=== PATIENT | male | born 1980 | race African-American/Black ===

== ENCOUNTER 2021-02-24 13:20 | Emergency (ER) | payer MEDICAID ==
[~2021-02-24] VITALS: Ht 170.2 cm; Wt 82.0 kg
[2021-02-24] MEDS ORDERED: ALBU6.7H9 INH (15:07)
[2021-02-24] MEDS ORDERED: P20 MT (15:07)
[2021-02-24 16:17] VITALS: BP 136/99
== END 2021-02-24 16:19 | disposition home or self-care (01) ==
LOC: ER 13:20
DX: R05.9 Cough, unspecified (principal); R06.2 Wheezing; Z20.822 Contact with and (suspected) exposure to COVID-19
CPT/HCPCS: 99283; C9803; U0003; U0005; Z7610

== ENCOUNTER 2023-05-23 16:26 | Emergency (ER) | payer MEDICAID ==
[~2023-05-23] VITALS: Ht 167.6 cm; Wt 66.0 kg
[~2023-05-23 16:26] MED LIST: ALBU6.7H3 INH; P20 MT
[2023-05-23 16:37] VITALS: BP 129/80; PULSE 73; RESP 18; O2SAT 100
[2023-05-23] MEDS ORDERED: ACETAMINOPHEN 325MG TABLET PO ONE (19:15)
[2023-05-23] MEDS ORDERED: METOCLOPRAMIDE HCL 10MG TABLET PO ONE (19:15)
[2023-05-23 20:25] LABS: BASOPHILS % 0.5 % (0.0-2.0); EOSINOPHILS % 0.8 % (0.0-5.0); HEMATOCRIT. 43.9 % (42.0-52.0); HEMOGLOBIN. 14.8 g/dL (14.0-18.0); LYMPHOCYTES % 30.6 % (20.0-50.0); MEAN CORPUSCULAR HEMOGLOBIN 31.5 pg (28.0-32.0); MEAN CORPUSCULAR HGB CONC 33.6 g/dL (31.0-37.0); MEAN CORPUSCULAR VOLUME 93.8 fL (80.0-94.0); MEAN PLATELET VOLUME 7.4 fl (7.4-10.4); MONOCYTES % 6.5 % (2.0-8.0); NEUTROPHILS % 61.6 % (40.0-76.0); PLATELET 247 x1000/uL (130-400); RED BLOOD CELL COUNT 4.68 mill/uL (4.7-6.1); RED CELL DISTRIBUTION WIDTH 14.9 % (11.6-14.6)
[2023-05-23 20:45] LABS: ALANINE AMINOTRANSFERASE 21 IU/L (10-49); ALBUMIN 4.6 g/dL (3.2-4.8); ASPARTATE AMINOTRANSFERASE 23 IU/L (<34); BILIRUBIN TOTAL 0.4 mg/dL (0.1-1.0); CALCIUM 9.5 mg/dL (8.7-10.4); CARBON DIOXIDE 26 mEq/L (21-32); CHLORIDE 105 mEq/L (98-107); CREATININE 0.9 mg/dL (0.6-1.3); GLUCOSE 67 mg/dL (70-105); POTASSIUM 3.9 mEq/L (3.5-5.1); PROTEIN TOTAL 8.3 g/dL (6.0-8.3); SODIUM 137 mEq/L (136-145); UREA NITROGEN BLOOD 13 mg/dL (9-23)
[2023-05-23 23:45] VITALS: TEMP 98.5
[2023-05-23] MEDS: ACETAMINOPHEN 325MG TABLET PO ONE (23:45)
[2023-05-23] MEDS: METOCLOPRAMIDE HCL 10MG TABLET PO ONE (23:45)
[2023-05-24 01:18] LABS: CLARITY URINE CLEAR (CLEAR); COLOR URINE YELLOW (YELLOW); GLUCOSE URINE NEGATIVE (NEGATIVE); KETONES URINE NEGATIVE (NEGATIVE); LEUKOCYTE ESTERASE URINE NEGATIVE (NEGATIVE); NITRITE URINE NEGATIVE (NEGATIVE); OCCULT BLOOD URINE NEGATIVE (NEGATIVE); PH URINE 6.5 (4.5-8.0); PROTEIN URINE NEGATIVE (NEGATIVE); SPECIFIC GRAVITY URINE 1.019 (1.005-1.030); UROBILINOGEN URINE 0.2 E.U./dL (0.2-1.0)
== END 2023-05-24 01:52 | disposition home or self-care (01) ==
LOC: ER 16:26
DX: R51.9 Headache, unspecified (principal); A64 Unspecified sexually transmitted disease
CPT/HCPCS: 99284; 70450; 86780; 86593; 86592; 80053; 85025; 36415; 81003; J8597